=== PATIENT | female | born 1950 | race Caucasian/White ===

== ENCOUNTER → 2024-01-08 11:31 | Outpatient (REF) | payer OTHER, SELFPAY | LOC: DHCBS HW 11:31 | PROVIDERS: ATTENDING PHYSICIAN Internal Medicine Cardiovascular Disease; FAMILY PHYSICIAN Family Medicine | DX: R55 Syncope and collapse (principal); I10 Essential (primary) hypertension | CPT/HCPCS: 93306 ==

== ENCOUNTER → 2024-01-25 | Outpatient (REF) | payer OTHER, SELFPAY | LOC: DHSLP | PROVIDERS: ATTENDING PHYSICIAN Internal Medicine Critical Care Medicine | DX: G47.33 Obstructive sleep apnea (adult) (pediatric) (principal) | CPT/HCPCS: 95800 ==

== ENCOUNTER 2025-01-13 10:43 | Emergency (ER) | payer OTHER, SELFPAY ==
[2025-01-13 10:45] VITALS: BP 129/76
--- NOTE | 2025-01-13 13:30 | ED.MUSCINJ ---
HPI-Injury
General
Chief Complaint: Musculo-Skeletal Complaint
Source: patient
Exam Limitations: none
Time Seen by Provider: 01/13/25 12:49
Nursing documentation reviewed up to this point in time: agreed with
History of Present Illness-Injury
Initial Injury comments:
74-year-old female with history of HTN, HLD, GERD, presents for increasing left hip pain over the past week. No recollection of overuse or injury. Advil and heating pad w some relief. Is able to ambulate. Denies fever/chills.
Past History
Past History
ED Past Medical History: GERD and HTN
ED Past Surgical History: Orthopedic (Bilateral shoulder replacements, R knee replacement)
Social History
Tobacco: Non-smoker
Alcohol: None
Personal:
Living: with family
Review of Systems
Review of Systems
Allergies reviewed?: Yes
All Other Systems: ROS reviewed and negative except as documented in HPI and ROS
Constitutional: Denies fever or chills
Respiratory: Denies trouble breathing
Cardiac: Denies chest pain
ABD/GI: Denies abdominal pain or nausea
: Denies dysuria, frequency, difficulty voiding or urgency
Musculoskeletal: Reports other (pain left hip); Denies neck pain or back pain
Skin: Reports no symptoms
Neurological: Reports no symptoms
Phy Exam
Physical Exam
Physical Exam:
GENERAL: No acute distress. A&Ox3.
CONSTITUTIONAL: Afebrile.
RESPIRATORY: Regular respirations, nonlabored, lungs clear.
CARDIOVASCULAR: Regular rate and rhythm, no murmurs, no rubs.
GI: Soft, nontender, normal BS
MUSCULOSKELETAL: Pressing on lateral left hip greater trochanter immediately reproduces pain. Other full ROM of hip and knee without pain. Adduction with flexed knee mildly aggravates the pain. Moves with ease. Well perfused. Ambulates well.
SKIN: Warm, dry, pink
PSYCH: Normal mood and affect. Well kept, interactive and appropriate
NEUROLOGIC: Awake, alert and oriented. No focal neurological deficits
Injury Course
Orders/Labs/Results
Orders:
Orders
01/13/25 11:47
Hip, Left 2-3 Views [CR Hip - LT w/wo Pel 2-3 Vw*] Urgent
Comment:
Reason For Exam: worsening left hip pain
Include a pelvis x-ray?: No
MDM/Problems Addressed
Differential Diagnosis Includes:
osteoarthritis, bursitis, sprain, fracture
MDM/Problems Addressed:
74-year-old female with history of HTN, HLD, GERD, presents for increasing left hip pain over the past week. No recollection of overuse or injury. Advil and heating pad w some relief. Is able to ambulate. Denies fever/chills.
Afebrile, NAD
No infectious symptoms
L hip laterally painful to palpation. Adequate ROM without much pain.
L hip xray: DJD, no acute finding
Exam is consistent with L hip bursitis: plan: Steroid taper, f/u with ortho as needed
Pt states she is not diabetic and does not take Metformin. She took it years ago.
Pt ambulated out with slow but steady gait
*Critical Care Note
Total Time (30-74mins, 75-104mins- exclusive of procedures): Not Applicable
ED Attending Note
-
Portions of this chart may have been created with voice recognition software.� Occasional wrong word or��sound alike� substitutions may have occurred due to the inherent limitations of voice recognition software.
Discharge Plan
Departure
Patient Disposition: Home (Routine Discharge)
Date of Disposition: 01/13/25
Time of Disposition: 13:36
Patient with high blood pressure during this ER visit?: No
Condition: Good
Discharge Problem:
Bursitis of left hip
Instructions: Prednisone, Hip Bursitis Exercises, Bursitis ED
Prescriptions:
New
prednisone 10 mg Tablet
See Rx Instructions .ROUTE .COMPLEX Qty: 30 0RF
Rx Instructions:
Take By Mouth:
40 mg daily x3 days, 30 mg daily x3 days,
20 mg daily x3 days, 10 mg daily x3 days.
No Action
metformin 500 mg Tablet
500 mg PO BID
famotidine 20 mg Tablet
20 mg PO BID
bupropion HCl 300 mg Tablet Extended Release 24 Hr
300 mg PO DAILY
multivitamin Tablet
1 tab PO DAILY
mupirocin 2 % ointment
1 applic intranasal BID Qty: 1 0RF
Patient Comments:
today @ home
melatonin 1 mg Tablet
aspirin 325 mg Tablet
325 mg PO DAILY Qty: 28 0RF
Rx Instructions:
Take daily x4 weeks for blood clot prevention.
lidocaine [Aspercreme (lidocaine)] 4 % Adhesive Patch,Medicated
2 patch topical DAILY Qty: 14 0RF
Rx Instructions:
Over the counter. Remove nightly.
Apply to sides of right knee. Do not place over incision.
docusate sodium 100 mg Capsule
100 mg PO BID Qty: 30 0RF
sennosides [senna] 8.6 mg Tablet
17.2 mg PO BID Qty: 30 0RF
acetaminophen [Acetaminophen Extra Strength] 500 mg tablet
1,000 mg PO Q6H Qty: 30 0RF
Rx Instructions:
DO NOT exceed >4000 mg daily.
losartan 100 mg Tablet
100 mg PO DAILY Qty: 1 0RF
Rx Instructions:
Hold if systolic blood pressure <130 while on Dilaudid.
hydromorphone 2 mg tablet
2 mg PO Q4H PRN (Reason: moderate-severe pain) Qty: 30 0RF
Rx Instructions:
1 tab for moderate pain, 2 if severe.
Dx total joint. Ongoing therapy.
Referrals:
Chelle Santamaria PA-C [Family Provider] -
Byron Stiles MD [Active] - As needed
Activity Restrictions/Additional Instructions:
As we discussed, I sent a prescription to your pharmacy for a prednisone taper. Steroids take 1 or 2 days to kick in so you might not feel much improvement until then.
You may use Tylenol 1000 mg up to twice a day as needed while you are on the steroid
See the orthopedic doctor if you are not a lot better within the next week.
Interventions
Interventions:
*Risk Screen - Suicide Last Done: 01/13/25 10:45
*General Assessment Last Done: 01/13/25 10:45
*Neglect/Abuse Screening Last Done: 01/13/25 10:45
*ED- Fall Risk Assessment Last Done: 01/13/25 13:51
*ED COVID-19 Vaccine History Last Done: 01/13/25 10:45
*Nursing Disposition Last Done: 01/13/25 13:51
ED-Musculoskeletal Assessment Last Done: 01/13/25 11:47
Discharge Date and Time
Discharge Date/Time: 01/13/25 13:52
Print Language: ALBANIAN
== END 2025-01-13 13:52 | disposition home or self-care (01) ==
LOC: EMR 10:43
PROVIDERS: EMERGENCY PHYSICIAN Student in an Organized Health Care Education/Training Program; FAMILY PHYSICIAN Physician Assistant Medical
DX: M70.72 Other bursitis of hip, left hip (principal); I10 Essential (primary) hypertension; E78.00 Pure hypercholesterolemia, unspecified; K21.9 Gastro-esophageal reflux disease without esophagitis; Z96.651 Presence of right artificial knee joint
CPT/HCPCS: 99283; 73502